=== PATIENT | male | born 1970 | race Caucasian/White ===

== ENCOUNTER 2018-01-09 23:01 | Inpatient (IN) | payer OTHER ==
[~2018-01-09] VITALS: Ht 182.8 cm; Wt 79.5 kg
[~2018-01-09 23:01] MED LIST: 'PARAFON FORTE500 M1 PO; ANAPROX DS550 MG PO; BENTYL20 MG PO; HYDROCODONE BIT1 T11 PO; MEDROL DOSEPAK4 MG PO; NAPROSYN500 MG PO; NKHM; NO DAILY MEDS; PREDNICOT20 MG PO; PREDNISONE10 MG PO; ROBAXIN750 MG PO; SKELAXIN800 MG PO; VIBRAMYCIN100 MG PO; VICODIN 500 MG-1 TAB PO; ZOFRAN ODT4 MG SL
[2018-01-09 23:13] VITALS: BP 135/94
[2018-01-09 23:37] LABS: BASO % 0.4 % (0.0-1.0); EOS # 0.1 10*3/uL (0.0-0.4); EOS % 2.2 % (1.0-4.0); LYMPH # 0.4 10*3/uL (1.3-4.4); LYMPH % 7.9 % (27.0-41.0); MEAN CELL VOLUME 89.2 fl (80.0-94.0); MEAN CORPUSCULAR HGB 30.5 pg (27.0-31.0); MEAN CORPUSCULAR HGB CONC 34.2 g/dl (33.0-37.0); MEAN PLATELET VOLUME 9.8 fl (9.6-12.3); MONO # 0.5 10*3/uL (0.1-1.0); MONO % 11.6 % (3.0-9.0); NEUT # 3.5 10*3/uL (2.3-7.9); NEUT % 77.5 % (47.0-73.0); PLATELET COUNT AUTOMATED 181 10*3/uL (130-400); RED BLOOD COUNT 4.26 10*6/uL (4.50-5.90); RED CELL DISTRI WIDTH 12.5 % (0-14.5); WHITE BLOOD COUNT 4.6 10*3/uL (4.8-10.8)
[2018-01-09 23:47] LABS: ACT PARTIAL THROMBO TIME 22.3 SECONDS (20.8-31.5)
[2018-01-09 23:56] LABS: ALBUMIN 3.8 gm/dl (3.1-4.5); ALKALINE PHOSPHATASE 54 U/L (45-117); BUN 13 mg/dl (7-24); CHLORIDE 102 mmol/L (98-107); CREATININE 1.03 mg/dL (0.70-1.30); POTASSIUM 3.6 mmol/L (3.5-5.1); SGOT/AST 23 IU/L (3-35); SGPT/ALT 33 U/L (12-78); SODIUM 138 mmol/L (136-145); TOTAL PROTEIN 7.1 gm/dL (6.4-8.2)
[2018-01-09 23:57] LABS: TROPONIN I < 0.015 ng/ml (<0.045)
[2018-01-10] VITALS (8 sets, daily range): BP systolic 115–127; BP diastolic 63–82
[2018-01-10] MEDS ORDERED: VENTOLIN 02.5 MG/3 M INH (04:20)
[2018-01-10 07:53] LABS: BASO % 0.3 % (0.0-1.0); EOS # 0.1 10*3/uL (0.0-0.4); EOS % 2.1 % (1.0-4.0); HEMATOCRIT 37.3 % (42.0-52.0); HEMOGLOBIN 12.4 g/dl (14.0-18.0); LYMPH # 0.7 10*3/uL (1.3-4.4); MEAN CELL VOLUME 91.2 fl (80.0-94.0); MEAN CORPUSCULAR HGB 30.3 pg (27.0-31.0); MEAN CORPUSCULAR HGB CONC 33.2 g/dl (33.0-37.0); MEAN PLATELET VOLUME 9.8 fl (9.6-12.3); MONO # 0.5 10*3/uL (0.1-1.0); MONO % 12.3 % (3.0-9.0); NEUT # 2.6 10*3/uL (2.3-7.9); NEUT % 67.5 % (47.0-73.0); PLATELET COUNT AUTOMATED 171 10*3/uL (130-400); RED BLOOD COUNT 4.09 10*6/uL (4.50-5.90); RED CELL DISTRI WIDTH 12.7 % (0-14.5); WHITE BLOOD COUNT 3.8 10*3/uL (4.8-10.8)
[2018-01-10 08:30] LABS: ALBUMIN 3.5 gm/dl (3.1-4.5); ALKALINE PHOSPHATASE 51 U/L (45-117); BUN 9 mg/dl (7-24); CHLORIDE 109 mmol/L (98-107); CHOLESTEROL 160 mg/dL (<200); CREATININE 0.91 mg/dL (0.70-1.30); FREE T4 0.91 ng/dl (0.76-1.46); HDL CHOLESTEROL 67 mg/dl (40-60); LDL CHOLESTEROL 75 mg/dL (9-159); POTASSIUM 4.4 mmol/L (3.5-5.1); SGOT/AST 19 IU/L (3-35); SGPT/ALT 27 U/L (12-78); SODIUM 142 mmol/L (136-145); TOTAL PROTEIN 6.7 gm/dL (6.4-8.2); TRIGLYCERIDES 90 mg/dl (<150); VLDL CHOLESTEROL 18 mg/dL (6-40)
[2018-01-10 08:35] LABS: THYROID STIM HORMONE (HS) 0.223 uIU/ml (0.358-4.75)
[2018-01-10 08:51] LABS: VITAMIN D, 25-HYDROXY 9.4 ng/mL (30-100)
[2018-01-11] VITALS: BP 126/77
[2018-01-11 06:41] LABS: BASO % 0.6 % (0.0-1.0); EOS # 0.1 10*3/uL (0.0-0.4); EOS % 2.9 % (1.0-4.0); HEMATOCRIT 36.4 % (42.0-52.0); HEMOGLOBIN 12.3 g/dl (14.0-18.0); LYMPH # 0.9 10*3/uL (1.3-4.4); LYMPH % 27.1 % (27.0-41.0); MEAN CELL VOLUME 90.8 fl (80.0-94.0); MEAN CORPUSCULAR HGB 30.7 pg (27.0-31.0); MEAN CORPUSCULAR HGB CONC 33.8 g/dl (33.0-37.0); MEAN PLATELET VOLUME 10.1 fl (9.6-12.3); MONO # 0.6 10*3/uL (0.1-1.0); MONO % 18.1 % (3.0-9.0); NEUT # 1.8 10*3/uL (2.3-7.9); NEUT % 51.3 % (47.0-73.0); PLATELET COUNT AUTOMATED 175 10*3/uL (130-400); RED BLOOD COUNT 4.01 10*6/uL (4.50-5.90); RED CELL DISTRI WIDTH 12.8 % (0-14.5); WHITE BLOOD COUNT 3.4 10*3/uL (4.8-10.8)
[2018-01-11 07:17] LABS: ALBUMIN 3.5 gm/dl (3.1-4.5); BUN 9 mg/dl (7-24); CHLORIDE 105 mmol/L (98-107); POTASSIUM 3.9 mmol/L (3.5-5.1); SODIUM 139 mmol/L (136-145)
[2018-01-11 07:24] LABS: ALKALINE PHOSPHATASE 51 U/L (45-117); CREATININE 0.89 mg/dL (0.70-1.30); SGOT/AST 20 IU/L (3-35); SGPT/ALT 29 U/L (12-78); TOTAL PROTEIN 6.8 gm/dL (6.4-8.2)
[2018-01-11 08:00] VITALS: BP 103/65
[2018-01-11 12:00] VITALS: BP 107/76
[2018-01-11 16:00] VITALS: BP 115/75
[2018-01-11 20:00] VITALS: BP 109/74
[2018-01-12] VITALS: BP 115/67
[2018-01-12 08:00] VITALS: BP 103/69
[2018-01-12] MEDS ORDERED: TAMIFLU 75MG CA75 MG PO (12:19)
== END 2018-01-12 13:00 | disposition home or self-care (01) | DRG 871 ==
LOC: ED 23:01 → EDHOLD 01-10 02:45 → 5E 01-10 02:45
PROVIDERS: Emergency Medicine Emergency Medical Services; Family Medicine Adult Medicine; Internal Medicine
DX: A41.9 Sepsis, unspecified organism (principal); J10.00 Influenza due to other identified influenza virus with unspecified type of pneumonia; D64.9 Anemia, unspecified; S39.012A Strain of muscle, fascia and tendon of lower back, initial encounter; E55.9 Vitamin D deficiency, unspecified; J45.20 Mild intermittent asthma, uncomplicated; M54.31 Sciatica, right side; X58.XXXA Exposure to other specified factors, initial encounter; Y93.89 Activity, other specified; Y92.89 Other specified places as the place of occurrence of the external cause; Y99.8 Other external cause status

== ENCOUNTER 2018-06-15 11:12 | Emergency (ER) | payer OTHER ==
[~2018-06-15] VITALS: Ht 182.8 cm; Wt 81.6 kg
[~2018-06-15 11:12] MED LIST changes: +TAMIFLU 75MG CA75 MG PO; +VENTOLIN 02.5 MG/3 M INH
[2018-06-15] MEDS ORDERED: PREDNISONE10 MG PO (11:40)
[2018-06-15] MEDS ORDERED: CLARITIN10 MG PO (11:40)
[2018-06-15] MEDS ORDERED: FLONASE ALLERG9.9 ML NAS (11:40)
[2018-06-15] MEDS ORDERED: ZOFRAN4 MG PO (11:40)
== END 2018-06-15 13:27 | disposition home or self-care (01) ==
LOC: ED 11:12
DX: B34.9 Viral infection, unspecified (principal); R03.0 Elevated blood-pressure reading, without diagnosis of hypertension; J45.909 Unspecified asthma, uncomplicated; Z91.041 Radiographic dye allergy status; Z79.899 Other long term (current) drug therapy; Z90.49 Acquired absence of other specified parts of digestive tract

== ENCOUNTER → 2018-12-06 | Outpatient (CLI) | payer OTHER ==
[~2018-12-06] MED LIST changes: +CLARITIN10 MG PO; +FLONASE ALLERG9.9 ML NAS; +OMEPRAZOLE40 MG PO; +ZOFRAN4 MG PO
== END | disposition home or self-care (01) ==
LOC: RAD 10:43
DX: R05 Cough (principal); R06.2 Wheezing; J40 Bronchitis, not specified as acute or chronic; R06.02 Shortness of breath; R09.89 Other specified symptoms and signs involving the circulatory and respiratory systems

== ENCOUNTER → 2018-12-16 | Outpatient (CLI) | payer OTHER ==
[2018-12-16 08:20] LABS: ALBUMIN 3.9 gm/dl (3.1-4.5); ALKALINE PHOSPHATASE 49 U/L (45-117); BUN 24 mg/dl (7-24); CHLORIDE 104 mmol/L (98-107); CHOLESTEROL 211 mg/dL (<200); CREATININE 0.99 mg/dL (0.70-1.30); HDL CHOLESTEROL 74 mg/dl (40-60); IRON 94 ug/dL (65-175); LDL CHOLESTEROL 117 mg/dL (9-159); POTASSIUM 4.3 mmol/L (3.5-5.1); SGOT/AST 15 IU/L (3-35); SGPT/ALT 31 U/L (12-78); SODIUM 139 mmol/L (136-145); TOTAL IRON BINDING CAPACITY 338 ug/dl (250-450); TOTAL PROTEIN 7.6 gm/dL (6.4-8.2); TRIGLYCERIDES 101 mg/dl (<150); VLDL CHOLESTEROL 20 mg/dL (6-40)
[2018-12-16 08:27] LABS: BASO % 0.5 % (0.0-1.0); EOS # 0.1 10*3/uL (0.0-0.4); EOS % 1.8 % (1.0-4.0); HEMATOCRIT 42.8 % (42.0-52.0); HEMOGLOBIN 14.6 g/dl (14.0-18.0); LYMPH # 2.1 10*3/uL (1.3-4.4); LYMPH % 32.4 % (27.0-41.0); MEAN CELL VOLUME 92.2 fl (80.0-94.0); MEAN CORPUSCULAR HGB 31.5 pg (27.0-31.0); MEAN CORPUSCULAR HGB CONC 34.1 g/dl (33.0-37.0); MEAN PLATELET VOLUME 10.2 fl (9.6-12.3); MONO # 0.6 10*3/uL (0.1-1.0); NEUT # 3.6 10*3/uL (2.3-7.9); NEUT % 54.9 % (47.0-73.0); PLATELET COUNT AUTOMATED 228 10*3/uL (130-400); RED BLOOD COUNT 4.64 10*6/uL (4.50-5.90); RED CELL DISTRI WIDTH 12.7 % (0-14.5); WHITE BLOOD COUNT 6.6 10*3/uL (4.8-10.8)
[2018-12-16 09:05] LABS: VITAMIN D, 25-HYDROXY 83.2 ng/mL (30-100)
== END | disposition home or self-care (01) ==
LOC: LAB 07:21
PROVIDERS: Nurse Practitioner Family
DX: G47.19 Other hypersomnia (principal); R53.83 Other fatigue; Z83.42 Family history of familial hypercholesterolemia; Z82.49 Family history of ischemic heart disease and other diseases of the circulatory system; Z83.3 Family history of diabetes mellitus

== ENCOUNTER → 2019-01-14 | Day surgery (SDC) | payer OTHER ==
[~2019-01-14] VITALS: Ht 182.8 cm; Wt 79.4 kg
[2019-01-14 07:25] VITALS: BP 117/69
[2019-01-14 09:00] VITALS: BP 96/46
[2019-01-14 09:15] VITALS: BP 99/66
[2019-01-14 09:30] VITALS: BP 101/68
== END | disposition home or self-care (01) ==
LOC: SDC 01-08 12:30
DX: K44.9 Diaphragmatic hernia without obstruction or gangrene (principal); K29.50 Unspecified chronic gastritis without bleeding; B96.81 Helicobacter pylori [H. pylori] as the cause of diseases classified elsewhere; K21.9 Gastro-esophageal reflux disease without esophagitis; R19.4 Change in bowel habit; J45.909 Unspecified asthma, uncomplicated; E78.5 Hyperlipidemia, unspecified; Z88.3 Allergy status to other anti-infective agents; Z91.013 Allergy to seafood; Z79.899 Other long term (current) drug therapy; Z90.49 Acquired absence of other specified parts of digestive tract; Z87.891 Personal history of nicotine dependence; Z98.890 Other specified postprocedural states; Z98.52 Vasectomy status; Z86.14 Personal history of Methicillin resistant Staphylococcus aureus infection; Z83.3 Family history of diabetes mellitus; Z82.49 Family history of ischemic heart disease and other diseases of the circulatory system

== ENCOUNTER → 2019-08-30 | Outpatient (CLI) | payer OTHER ==
[2019-08-30 07:57] LABS: ALBUMIN 3.9 gm/dl (3.1-4.5); ALKALINE PHOSPHATASE 51 U/L (45-117); BUN 18 mg/dl (7-24); CHLORIDE 108 mmol/L (98-107); CHOLESTEROL 167 mg/dL (<200); CREATININE 0.99 mg/dL (0.70-1.30); HDL CHOLESTEROL 66 mg/dl (40-60); LDL CHOLESTEROL 90 mg/dL (9-159); POTASSIUM 4.5 mmol/L (3.5-5.1); SGOT/AST 22 IU/L (3-35); SGPT/ALT 30 U/L (12-78); SODIUM 141 mmol/L (136-145); TOTAL PROTEIN 7.5 gm/dL (6.4-8.2); TRIGLYCERIDES 55 mg/dl (<150); VLDL CHOLESTEROL 11 mg/dL (6-40)
== END | disposition home or self-care (01) ==
LOC: LAB 07:16
PROVIDERS: Nurse Practitioner Family
DX: G56.03 Carpal tunnel syndrome, bilateral upper limbs (principal); E78.01 Familial hypercholesterolemia; K30 Functional dyspepsia; M19.90 Unspecified osteoarthritis, unspecified site

== ENCOUNTER → 2020-07-26 | Outpatient (CLI) | payer OTHER ==
[2020-07-26 08:12] LABS: BASO % 0.4 % (0.0-1.0); EOS # 0.2 10*3/uL (0.0-0.4); EOS % 3.8 % (1.0-4.0); HEMATOCRIT 42.8 % (42.0-52.0); LYMPH # 1.2 10*3/uL (1.3-4.4); LYMPH % 27.2 % (27.0-41.0); MEAN CELL VOLUME 90.7 fl (80.0-94.0); MEAN CORPUSCULAR HGB 30.1 pg (27.0-31.0); MEAN CORPUSCULAR HGB CONC 33.2 g/dl (33.0-37.0); MEAN PLATELET VOLUME 10.4 fl (9.6-12.3); MONO # 0.4 10*3/uL (0.1-1.0); MONO % 9.3 % (3.0-9.0); NEUT # 2.7 10*3/uL (2.3-7.9); NEUT % 58.6 % (47.0-73.0); PLATELET COUNT AUTOMATED 213 10*3/uL (130-400); RED BLOOD COUNT 4.72 10*6/uL (4.50-5.90); RED CELL DISTRI WIDTH 12.4 % (0-14.5); WHITE BLOOD COUNT 4.5 10*3/uL (4.8-10.8)
[2020-07-26 08:44] LABS: ALBUMIN 4.1 gm/dl (3.1-4.5); ALKALINE PHOSPHATASE 58 U/L (45-117); BUN 18 mg/dl (7-24); CHLORIDE 108 mmol/L (98-107); CHOLESTEROL 207 mg/dL (<200); CREATININE 0.94 mg/dL (0.70-1.30); HDL CHOLESTEROL 69 mg/dl (40-60); LDL CHOLESTEROL 121 mg/dL (9-159); POTASSIUM 4.3 mmol/L (3.5-5.1); SGOT/AST 24 IU/L (3-35); SGPT/ALT 31 U/L (12-78); SODIUM 139 mmol/L (136-145); TOTAL PROTEIN 7.6 gm/dL (6.4-8.2); TRIGLYCERIDES 86 mg/dl (<150); VLDL CHOLESTEROL 17 mg/dL (6-40)
[2020-07-26 08:50] LABS: THYROID STIM HORMONE (HS) 0.617 uIU/ml (0.358-4.75)
== END | disposition home or self-care (01) ==
LOC: LAB 07:21
PROVIDERS: ATTEND Nurse Practitioner Family
DX: K30 Functional dyspepsia (principal); E78.01 Familial hypercholesterolemia; R53.83 Other fatigue; Z83.3 Family history of diabetes mellitus; Z83.42 Family history of familial hypercholesterolemia; Z82.49 Family history of ischemic heart disease and other diseases of the circulatory system

== ENCOUNTER → 2020-08-02 | Outpatient (CLI) | payer OTHER ==
[2020-08-02 07:36] LABS: BASO % 0.5 % (0.0-1.0); EOS # 0.2 10*3/uL (0.0-0.4); EOS % 3.1 % (1.0-4.0); HEMATOCRIT 41.1 % (42.0-52.0); LYMPH # 1.4 10*3/uL (1.3-4.4); LYMPH % 25.6 % (27.0-41.0); MEAN CELL VOLUME 89.9 fl (80.0-94.0); MEAN CORPUSCULAR HGB 29.8 pg (27.0-31.0); MEAN CORPUSCULAR HGB CONC 33.1 g/dl (33.0-37.0); MEAN PLATELET VOLUME 10.3 fl (9.6-12.3); MONO # 0.5 10*3/uL (0.1-1.0); MONO % 8.9 % (3.0-9.0); NEUT # 3.4 10*3/uL (2.3-7.9); NEUT % 61.7 % (47.0-73.0); PLATELET COUNT AUTOMATED 224 10*3/uL (130-400); RED BLOOD COUNT 4.57 10*6/uL (4.50-5.90); RED CELL DISTRI WIDTH 12.1 % (0-14.5); WHITE BLOOD COUNT 5.5 10*3/uL (4.8-10.8)
[2020-08-02 08:06] LABS: ALBUMIN 4.1 gm/dl (3.1-4.5); ALKALINE PHOSPHATASE 56 U/L (45-117); BUN 21 mg/dl (7-24); CHLORIDE 108 mmol/L (98-107); CHOLESTEROL 158 mg/dL (<200); CREATININE 0.88 mg/dL (0.70-1.30); HDL CHOLESTEROL 67 mg/dl (40-60); LDL CHOLESTEROL 78 mg/dL (9-159); POTASSIUM 4.3 mmol/L (3.5-5.1); SGOT/AST 15 IU/L (3-35); SGPT/ALT 28 U/L (12-78); SODIUM 138 mmol/L (136-145); TOTAL PROTEIN 7.5 gm/dL (6.4-8.2); TRIGLYCERIDES 63 mg/dl (<150); VLDL CHOLESTEROL 13 mg/dL (6-40)
[2020-08-02 08:13] LABS: THYROID STIM HORMONE (HS) 0.568 uIU/ml (0.358-4.75)
== END | disposition home or self-care (01) ==
LOC: LAB 07:04
PROVIDERS: ATTEND Nurse Practitioner Family
DX: K30 Functional dyspepsia (principal); R53.83 Other fatigue; E55.9 Vitamin D deficiency, unspecified; E78.01 Familial hypercholesterolemia; Z83.3 Family history of diabetes mellitus; Z83.42 Family history of familial hypercholesterolemia; Z82.49 Family history of ischemic heart disease and other diseases of the circulatory system

== ENCOUNTER → 2021-02-15 | Outpatient (CLI) | payer OTHER | END | disposition home or self-care (01) | LOC: LAB 15:46 | PROVIDERS: ATTEND Nurse Practitioner Family | DX: R18.8 Other ascites (principal); R19.7 Diarrhea, unspecified; R10.84 Generalized abdominal pain ==

== ENCOUNTER → 2021-02-16 | Outpatient (CLI) | payer OTHER | END | disposition home or self-care (01) | LOC: LAB 09:18 | PROVIDERS: ATTEND Nurse Practitioner Family | DX: R19.7 Diarrhea, unspecified (principal) ==

== ENCOUNTER → 2021-03-04 | Outpatient (CLI) | payer OTHER | END | disposition home or self-care (01) | LOC: LAB 16:30 | PROVIDERS: ATTEND Nurse Practitioner Family | DX: A04.72 Enterocolitis due to Clostridium difficile, not specified as recurrent (principal); R19.7 Diarrhea, unspecified ==

== ENCOUNTER → 2021-07-11 | Outpatient (CLI) | payer OTHER ==
[2021-07-11 06:27] LABS: ALBUMIN 3.7 gm/dl (3.1-4.5); BUN 24 mg/dl (7-24); CHLORIDE 106 mmol/L (98-107); CHOLESTEROL 157 mg/dL (<200); POTASSIUM 4.1 mmol/L (3.5-5.1); SGOT/AST 15 IU/L (3-35); SGPT/ALT 32 U/L (12-78); SODIUM 140 mmol/L (136-145)
[2021-07-11 06:32] LABS: ALKALINE PHOSPHATASE 58 U/L (45-117); LDL CHOLESTEROL 47 mg/dL (9-159); TRIGLYCERIDES 114 mg/dl (<150)
== END | disposition home or self-care (01) ==
LOC: LAB 05:19
PROVIDERS: Nurse Practitioner Family; ATTEND Family Medicine
DX: M51.35 Other intervertebral disc degeneration, thoracolumbar region (principal); E78.01 Familial hypercholesterolemia; E55.9 Vitamin D deficiency, unspecified

== ENCOUNTER 2021-09-28 18:20 | Emergency (ER) | payer OTHER ==
[~2021-09-28] VITALS: Wt 83.6 kg
[2021-09-28 19:03] LABS: BASO % 0.2 % (0.0-1.0); HEMATOCRIT 42.7 % (42.0-52.0); LYMPH % 18.9 % (27.0-41.0); MEAN CELL VOLUME 87.9 fl (80.0-94.0); MEAN CORPUSCULAR HGB CONC 34.2 g/dl (33.0-37.0); MEAN PLATELET VOLUME 10.2 fl (9.6-12.3); MONO # 0.5 10*3/uL (0.1-1.0); MONO % 9.8 % (3.0-9.0); NEUT # 3.8 10*3/uL (2.3-7.9); NEUT % 70.7 % (47.0-73.0); PLATELET COUNT AUTOMATED 185 10*3/uL (130-400); RED BLOOD COUNT 4.86 10*6/uL (4.50-5.90); RED CELL DISTRI WIDTH 12.1 % (0-14.5); WHITE BLOOD COUNT 5.3 10*3/uL (4.8-10.8)
[2021-09-28 19:23] LABS: ALBUMIN 3.4 gm/dl (3.1-4.5); ALKALINE PHOSPHATASE 75 U/L (45-117); BUN 15 mg/dl (7-24); CHLORIDE 104 mmol/L (98-107); CREATININE 1.01 mg/dL (0.70-1.30); SGOT/AST 37 IU/L (3-35); SGPT/ALT 47 U/L (12-78); SODIUM 136 mmol/L (136-145); TOTAL PROTEIN 7.5 gm/dL (6.4-8.2)
[2021-09-28 19:29] LABS: TROPONIN I < 0.015 ng/ml (<0.045)
== END 2021-09-28 20:31 | disposition home or self-care (01) ==
LOC: ED 18:20
PROVIDERS: Physician Assistant
DX: U07.1 COVID-19 (principal); F17.200 Nicotine dependence, unspecified, uncomplicated; Z91.013 Allergy to seafood

== ENCOUNTER 2021-09-30 10:40 | Emergency (ER) | payer OTHER ==
[~2021-09-30] VITALS: Wt 81.6 kg
[2021-09-30 11:53] LABS: HEMATOCRIT 42.3 % (42.0-52.0); LYMPH # 1.1 10*3/uL (1.3-4.4); MEAN CELL VOLUME 86.2 fl (80.0-94.0); MEAN CORPUSCULAR HGB 30.1 pg (27.0-31.0); MEAN PLATELET VOLUME 10.1 fl (9.6-12.3); MONO # 0.5 10*3/uL (0.1-1.0); MONO % 9.7 % (3.0-9.0); NEUT # 3.3 10*3/uL (2.3-7.9); NEUT % 67.9 % (47.0-73.0); PLATELET COUNT AUTOMATED 185 10*3/uL (130-400); RED BLOOD COUNT 4.91 10*6/uL (4.50-5.90); RED CELL DISTRI WIDTH 12.3 % (0-14.5); WHITE BLOOD COUNT 4.9 10*3/uL (4.8-10.8)
[2021-09-30 12:13] LABS: ALBUMIN 3.4 gm/dl (3.1-4.5); ALKALINE PHOSPHATASE 73 U/L (45-117); BUN 21 mg/dl (7-24); CHLORIDE 100 mmol/L (98-107); CREATININE 0.92 mg/dL (0.70-1.30); POTASSIUM 3.7 mmol/L (3.5-5.1); SGOT/AST 39 IU/L (3-35); SGPT/ALT 44 U/L (12-78); SODIUM 134 mmol/L (136-145); TOTAL PROTEIN 7.9 gm/dL (6.4-8.2)
[2021-09-30] MEDS ORDERED: ZOFRAN4 MG PO (14:57)
== END 2021-09-30 15:09 | disposition home or self-care (01) ==
LOC: ED 10:40
PROVIDERS: Physician Assistant
DX: U07.1 COVID-19 (principal); Z91.013 Allergy to seafood; Z87.891 Personal history of nicotine dependence

== ENCOUNTER → 2022-06-08 | Outpatient (CLI) | payer OTHER ==
[2022-06-08 08:20] LABS: BASO % 0.5 % (0.0-1.0); EOS # 0.1 10*3/uL (0.0-0.4); EOS % 2.3 % (1.0-4.0); HEMATOCRIT 40.7 % (42.0-52.0); LYMPH # 1.4 10*3/uL (1.3-4.4); LYMPH % 32.3 % (27.0-41.0); MEAN CELL VOLUME 89.1 fl (80.0-94.0); MEAN CORPUSCULAR HGB 30.9 pg (27.0-31.0); MEAN CORPUSCULAR HGB CONC 34.6 g/dl (33.0-37.0); MEAN PLATELET VOLUME 10.2 fl (9.6-12.3); MONO # 0.4 10*3/uL (0.1-1.0); MONO % 9.4 % (3.0-9.0); NEUT # 2.3 10*3/uL (2.3-7.9); NEUT % 54.8 % (47.0-73.0); PLATELET COUNT AUTOMATED 215 10*3/uL (130-400); RED BLOOD COUNT 4.57 10*6/uL (4.50-5.90); RED CELL DISTRI WIDTH 12.3 % (0-14.5); WHITE BLOOD COUNT 4.3 10*3/uL (4.8-10.8)
[2022-06-08 08:45] LABS: BUN 18 mg/dl (7-24); CHLORIDE 104 mmol/L (98-107); CHOLESTEROL 192 mg/dL (<200); CREATININE 0.91 mg/dL (0.70-1.30); POTASSIUM 4.1 mmol/L (3.5-5.1); SGOT/AST 23 IU/L (3-35); SGPT/ALT 31 U/L (12-78); SODIUM 139 mmol/L (136-145); TRIGLYCERIDES 86 mg/dl (<150)
[2022-06-08 08:53] LABS: ALKALINE PHOSPHATASE 69 U/L (45-117); LDL CHOLESTEROL 106 mg/dL (9-159); THYROID STIM HORMONE (HS) 0.536 uIU/ml (0.358-4.75); TOTAL PROTEIN 7.7 gm/dL (6.4-8.2)
== END ==
LOC: LAB 07:46
PROVIDERS: ATTEND Nurse Practitioner Family
DX: E78.01 Familial hypercholesterolemia (principal); L65.9 Nonscarring hair loss, unspecified; E55.9 Vitamin D deficiency, unspecified